=== PATIENT | female | born 1995 | race African-American/Black ===

== ENCOUNTER 2019-03-17 14:46 | Emergency (ER) | payer SELFPAY ==
[~2019-03-17] VITALS: Ht 160 cm; Wt 52.0 kg
[2019-03-17 15:07] VITALS: BP 114/81
[2019-03-17] MEDS ORDERED: KETOROLAC 30MG/ML VIAL IM ONE (18:00)
== END 2019-03-17 23:18 | disposition home or self-care (01) ==
LOC: ER 14:46
DX: M25.519 Pain in unspecified shoulder (principal); R05 Cough
CPT/HCPCS: 87804; 93005; 96372; 99284; J1885

== ENCOUNTER 2021-04-04 09:43 | Emergency (ER) | payer MEDICAID, OTHER ==
[~2021-04-04] VITALS: Ht 162.6 cm; Wt 49.0 kg
[2021-04-04] MEDS ORDERED: ACETAMINOPHEN 325MG TABLET PO ONE (10:15)
[2021-04-04] MEDS ORDERED: KETOROLAC 30MG/ML VIAL IV STA (10:18)
[2021-04-04] MEDS ORDERED: SODIUM CHLORIDE 0.9% 1,000 ML IV ONE (10:30)
[2021-04-04] MEDS ORDERED: METOCLOPRAMIDE HCL 10MG/2ML VIAL IV ONE (10:30)
[2021-04-04] MEDS ORDERED: DIPHENHYDRAMINE 50MG/ML VIAL IV ONE (10:30)
[2021-04-04 11:12] LABS: BASOPHILS % 0.9 % (0.0-2.0); EOSINOPHILS % 0.4 % (0.0-5.0); HEMATOCRIT. 46.9 % (36.0-48.0); HEMOGLOBIN. 15.3 g/dL (12.0-16.0); MEAN CORPUSCULAR HEMOGLOBIN 29.1 pg (28.0-32.0); MEAN CORPUSCULAR VOLUME 89.4 fL (81.0-99.0); MONOCYTES % 6.8 % (2.0-8.0); NEUTROPHILS % 44.9 % (40.0-76.0); PLATELET 274 x1000/uL (130-400); RED BLOOD CELL COUNT 5.25 mill/uL (4.2-5.4); RED CELL DISTRIBUTION WIDTH 12.8 % (11.6-14.6)
[2021-04-04 11:18] LABS: CHLORIDE 105 mEq/L (98-107)
[2021-04-04 11:22] LABS: ETHANOL BLOOD < 10 mg/dL; HCG SCREEN NEGATIVE
[2021-04-04 11:44] LABS: CLARITY URINE CLEAR (CLEAR); COLOR URINE YELLOW (YELLOW); KETONES URINE NEGATIVE (NEGATIVE); LEUKOCYTE ESTERASE URINE NEGATIVE (NEGATIVE); NITRITE URINE NEGATIVE (NEGATIVE); OCCULT BLOOD URINE NEGATIVE (NEGATIVE); PROTEIN URINE NEGATIVE (NEGATIVE); SPECIFIC GRAVITY URINE 1.004 (1.005-1.030); UROBILINOGEN URINE 0.2 E.U./dL (0.2-1.0)
[2021-04-04] MEDS ORDERED: IBUP-2028 MT (12:15)
[2021-04-04 12:31] LABS: *AMPHETAMINES SCREEN URINE NEGATIVE (NEGATIVE); *BARBITURATES SCREEN URINE NEGATIVE (NEGATIVE)
[2021-04-04 12:32] LABS: *BENZODIAZEPINES SCREEN URINE NEGATIVE (NEGATIVE); METHADONE URINE SCREEN NEGATIVE (NEGATIVE); OPIATES URINE SCREEN NEGATIVE (NEGATIVE)
[2021-04-04 12:33] LABS: PHENCYCLIDINE URINE SCREEN NEGATIVE (NEGATIVE)
[2021-04-04 12:35] LABS: *COCAINE SCREEN URINE NEGATIVE (NEGATIVE)
[2021-04-04 12:40] VITALS: BP 121/61
[2021-04-04 12:42] LABS: CANNABINOID URINE SCREEN PRESUMTIVE POSITIVE (NEGATIVE)
== END 2021-04-04 12:44 | disposition home or self-care (01) ==
LOC: ER 09:43
DX: R51.9 Headache, unspecified (principal); R07.9 Chest pain, unspecified; B34.9 Viral infection, unspecified; Z86.16 Personal history of COVID-19; Z20.822 Contact with and (suspected) exposure to COVID-19
CPT/HCPCS: 36415; 71045; 80053; 80305; 80320; 81003; 81025; 84484; 84703; 85025; 87426; 93005; 96361; 96374; 96375; 99285; J1200; J1885; J2765; J7030; Z7610; G0480

== ENCOUNTER 2024-03-02 15:05 | Emergency (ER) | payer MEDICAID ==
[~2024-03-02] VITALS: Ht 162.6 cm; Wt 54.0 kg
[~2024-03-02 15:05] MED LIST: IBUP-2028 MT
[2024-03-02 15:20] VITALS: O2SAT 98
[2024-03-02 15:25] VITALS: BP 117/79; PULSE 102; RESP 18; TEMP 97.9; O2SAT 97
[2024-03-02] MEDS ORDERED: HYDR30CR80 TP (19:43)
== END 2024-03-02 20:30 | disposition home or self-care (01) ==
LOC: ER 15:05
DX: K60.2 Anal fissure, unspecified (principal)
CPT/HCPCS: 99282